=== PATIENT | female | born 1970 | race Caucasian/White ===

== ENCOUNTER → 2017-04-19 | Outpatient (CLI) | payer BC ==
[~2017-04-19] MED LIST: WARF10TA4 PO; WARF2TAB8 PO
--- NOTE | 2017-04-19 14:12 | DIAGNOSTIC IMAGING REPORT ---
LEFT HEEL MIN 2 VIEWS CLINICAL HISTORY: HEEL PAIN pain COMPARISON: None. DISCUSSION: Heel spur. Study is otherwise unremarkable. Bony mineralization is normal. There is no evidence for soft tissue swelling. IMPRESSION: Heel spur. Otherwise negative study. Electronically signed by: Slick Salter M.D. 04/19/2017 2:11 PM Dictated Date/Time: 04/19/2017 2:10 PM
== END | disposition home or self-care (01) ==
LOC: C.RAD 13:47
PROVIDERS: ATTEND Physician Assistant
DX: M79.672 Pain in left foot (principal); M77.32 Calcaneal spur, left foot

== ENCOUNTER 2019-12-18 10:54 | Observation (INO) ==
--- NOTE | 2019-12-03 10:38 | PAT Medication Instructions ---
Medication Instructions Date of Service December 03, 2019 Home Medications lisinopril 5 mg PO QPM multivitamin with minerals [Hair,Skin and Nails] 1 tab PO DAILY warfarin 2 mg PO QPM warfarin 10 mg PO QPM ASK your prescriber and surgeon warfarin 2 mg PO QPM warfarin 10 mg PO QPM DO NOT take the morning of surgery multivitamin with minerals [Hair,Skin and Nails] 1 tab PO DAILY Take evening before surgery lisinopril 5 mg PO QPM Other Notes If you have any questions please call us at [phone] or [phone] or [phone] or [phone]
--- NOTE | 2019-12-03 10:53 | Anesthesiology Consultation ---
Date of Service December 03, 2019 Assessment & Plan (1) Encounter for pre-operative examination: - Check test AM DOS - Check coags AM DOS (warfarin instructions per surgeon/prescriber) - Possible difficult intubation: due to anatomy Chart Review Chart Review: Acceptable Risk for Surgery and Patient seen in Pre Admission Testing Teaching & Discussion Pre-Anesthesia Teaching/Discussion Notes: Instructed NPO after midnight before surgery,except medications with 15 cc of water. Medication instructions provided according to the PAT guidelines. History Surgery Operation Date: 12/18/19 12:30 Proposed Procedures p Total Laparoscopic Hysterectomy, Bilateral Salpingo-Oophorectomy; Cystoscopy - Thao Sue Height/Weight Height: 5 ft 6 in Weight: 134.5 kg Allergies Allergy/AdvReac Type Severity Reaction Status Date / Time latex Allergy Intermediate localized Verified 12/03/19 08:43 rash No Known Drug Allergies AdvReac Verified 12/03/19 08:43 Medications Home Medications Medication Instructions Recorded Confirmed Last Taken lisinopril 5 mg PO QPM 12/03/19 12/03/19 Unknown multivitamin with minerals 1 tab PO DAILY 12/03/19 12/03/19 Unknown [Hair,Skin and Nails] warfarin 2 mg PO QPM 12/03/19 12/03/19 Unknown warfarin 10 mg PO QPM 12/03/19 12/03/19 Unknown Past Medical History Medical History Asthma no current issues Deep vein thrombosis LLE (~2013) Factor 5 Leiden mutation, heterozygous History of cellulitis LLE resolved 11/2019; felt r/t venous insufficiency- wears compression stockings Hypertension Morbid obesity Exercise / Class Metabolic Activity II 4-5 Yardwork/Stairs/Walk up hill Past Family History Family History Grandmother Cervical cancer Uncle FHx: lung cancer Other No family history of adverse response to anesthesia Past Surgical History Surgical History History of tooth extraction Past Anesthesia History No Family Hx of Anesthesia Complications and Other (post-op hyperventilating x1 episode with anesthesia emergence after teeth extraction) History of PONV No Hx of PONV and No Hx of Motion Sickness Social History Smoking Status: Former smoker tobacco type: cigarettes Do You Dip or Chew Tobacco: No Smoking End Date: Quit 26 years ago Hx Alcohol Use: Yes Alcohol type: wine and hard liquor alcohol intake frequency: a few times a week Hx Substance Use: No Review of Systems Occasional heart racing. Patient denies chest pain, shortness of breath, dyspnea on exertion, cough, wheezing. Physical Exam Vital Signs VITALS BP 123/63 P 62 TEMP 98.5 SP02 96%RA RESP 18 PHYSICAL Full neck and c-spine range of motion. Full TMJ range of motion. TMD 2 finger breaths (small chin) Mallampati Score 3 Dentition: missing molars Lungs: clear throughout to auscultation Cardiac: regular rate and rhythm, no murmurs noted Spine: normal Carotid arteries: negative bruit Extremities: no edema Testing Laboratory Results 12/03/19 11:15 12/03/19 11:15 PT 33.6 Seconds (9.0-12.0) H 12/03/19 11:15 INR 3.6 (0.9-1.1) H 12/03/19 11:15 APTT 40.7 Seconds (21.0-31.0) H 12/03/19 11:15 Blood Type AB Positive 12/03/19 11:15 Antibody Screen NEGATIVE 12/03/19 11:15 Electrocardiogram Date: 12/03/19 Findings: + NSR @ (69) Echocardiogram Date: 09/24/18 EF 55-60%. Mild MR. Mild to moderate TR. RVSP 30-40mmhg.
[2019-12-03 11:53] LABS: Basophils # (auto) 0.03 K/uL (0-0.2); Basophils % (auto) 0.6 %; Eosinophils % (auto) 3.9 %; Hematocrit (blood only) 41.3 % (37-47); Hemoglobin 13.4 g/dL (12.0-16.0); Immature Granulocytes # (auto) 0.02 K/uL (0.00-0.02); Immature Granulocytes % (auto) 0.4 %; Lymphocytes # (auto) 1.56 K/uL (1.2-3.4); Lymphocytes % (auto) 30.6 %; Mean Corpuscular Hemoglobin 31.2 pg (25-34); Mean Corpuscular Hgb Conc 32.4 g/dL (32-36); Mean Platelet Volume 10.5 fL (7.4-10.4); Monocytes # (auto) 0.45 K/uL (0.11-0.59); Monocytes % (auto) 8.8 %; Neutrophils # (auto) 2.84 K/uL (1.4-6.5); Neutrophils % (auto) 55.7 %; Platelet Count 200 K/uL (130-400); RDW Coefficient of Variation 13.6 % (11.5-14.5); RDW Standard Deviation 47.4 fL (36.4-46.3)
[2019-12-03 12:15] LABS: INR 3.6 (0.9-1.1); Partial Thromboplastin Ratio 1.5; Partial Thromboplastin Time 40.7 Seconds (21.0-31.0); Prothrombin Time 33.6 Seconds (9.0-12.0)
[2019-12-03 12:18] LABS: Calcium 9.7 mg/dl (8.5-10.1); Creatinine Clr Calc Pharmacy 119.8 ml/min; Est GFR (African American) 99.5; Est GFR (Non-African American) 85.9; Potassium 4.5 mmol/L (3.5-5.1)
--- NOTE | 2019-12-03 17:39 | Electrocardiogram Report ---
Test Reason : Blood Pressure : / mmHG Vent. Rate : 069 BPM Atrial Rate : 069 BPM P-R Int : 178 ms QRS Dur : 082 ms QT Int : 394 ms P-R-T Axes : 042 042 005 degrees QTc Int : 422 ms Normal sinus rhythm Normal ECG When compared with ECG of 06-AUG-2012 13:03, No significant change was found Confirmed by Tray Perez ([id number]) on 12/03/2019 5:39:05 PM Referred By: Thao Sue Confirmed By:James Perez
[~2019-12-18 10:54] MED LIST changes: +CEFAZOLIN 3000MG 72.5 ML IV SCH; +LACTATED RINGER'S 1,000 ML IV SCH; +LR 15ML/HR IV SCH; -WARF10TA4 PO; -WARF2TAB8 PO
[2019-12-18] MEDS ORDERED: NEOSTIGMINE METHYLSULFATE 5 MG/5 ML SYR ONE (11:09)
[2019-12-18] MEDS ORDERED: PROPOFOL IV EMULSION 10 MG/ML 20 ML VIAL IV ONE ×2 (11:09→14:03)
[2019-12-18] MEDS ORDERED: LIDOCAINE HCL 2% 2 ML VIAL/AMP(20MG/ML) INFIL ONE (11:09)
[2019-12-18] MEDS ORDERED: ONDANSETRON INJ 2 MG/ML 2 ML VIAL ONE (11:09)
[2019-12-18] MEDS ORDERED: ROCURONIUM BROMIDE 10 MG/ML 5 ML VIAL ONE (11:09)
[2019-12-18] MEDS ORDERED: GLYCOPYRROLATE 0.2 MG/ML VIAL ONE (11:09)
[2019-12-18] MEDS ORDERED: DEXAMETHASONE SOD INJ 4 MG/ML VIAL ONE (11:09)
[2019-12-18] MEDS ORDERED: fentaNYL citrate 100 MCG/2 ML VIAL ONE ×2 (11:09→14:02)
[2019-12-18] MEDS ORDERED: MIDAZOLAM HCL 1 MG/ML 2ML VIAL ONE (11:09)
--- OUTSIDE RECORDS SUMMARY | 2019-12-18 11:16 | External Medical Summary | Continuity of Care Document ---
:1970 Author Name Tena Quevedo Address Unavailable Unavailable , Care Team Providers Name Role Phone Tuyet Quevedo Unavailable [email or web address] Unavailable Unavailable Unavailable Unavailable Unavailable Assessments Assessed Problems:Epistaxis Problems Epistaxis (784.7) (R04.0) Allergies and Adverse Reactions No Known Drug Allergies (Allergy) Latex (Allergy) Medications Coumadin 10 MG Oral Tablet Refills: 0 Coumadin 2 MG Oral Tablet Refills: 0 Lisinopril 10 MG Oral Tablet Refills: 0 Procedures History of no history of surgery Status: Completed Immunizations Immunizations not documented Family History Mother Family history of factor V Leiden mutation (V18.3) (Z83.2) S tatus: Active Unknown Family Member Family history of cardiac disorder (V17.49) Status: Active Comments: Family History (Z82.49) Family history of malignant neoplasm (V16.9) Status: Active Comments: Family History (Z80.9) Social History - Smoking Status Former smoker Plan of Treatment Planned Observations Planned Goals not documented Results No Known Results Results not documented Encounters Appointment; Bobby Benz M.D. 03-Mar-2019 10:50 Encounter Diagnosis: Problem not documented Appointment; Bobby Benz M.D. 17-Mar-2019 8:40 Encounter Diagnosis: Problem not documented
[2019-12-18 11:53] LABS: Partial Thromboplastin Time 26.5 Seconds (21.0-31.0); Prothrombin Time 10.6 Seconds (9.0-12.0)
[2019-12-18 12:00] LABS: Pregnancy Test, Serum Negative (Negative)
--- NOTE | 2019-12-18 12:38 | History & Physical Bridge Note ---
Date of Service December 18, 2019 History & Physical Bridge Note I have examined the patient, reviewed the History & Physical and in the interval since the performance of the History & Physical I have noted the following changes of clinical significance: no changes noted
[2019-12-18] MEDS ORDERED: BUPIVACAINE 0.5 % 5 MG/1 ML MPF 30ML VIAL ONE (12:48)
[2019-12-18] MEDS ORDERED: VASOPRESSIN 20 UNIT/ML VIAL ONE (13:12)
[2019-12-18] MEDS ORDERED: SUCCINYLCHOLINE 100MG/5ML SYR ONE (13:30)
[2019-12-18] MEDS ORDERED: ePHEDrine sulfate 50 MG/ML SYR ONE (13:38)
[2019-12-18] MEDS ORDERED: PHENYLEPHRINE 100MCG/ML 5ML SYR ONE (13:38)
[2019-12-18] MEDS ORDERED: CISATRACURIUM BESYLATE IV SOLN 2 MG/ML 10 ML VIAL IV ONE (14:05)
[2019-12-18] MEDS ORDERED: ePHEDrine sulfate 50 MG/ML AMP IV PRN (14:19)
[2019-12-18] MEDS ORDERED: PROMETHAZINE HCL 12.5 MG in SODIUM CHLORIDE 0.9% 50 ML IV PRN (14:19)
[2019-12-18] MEDS ORDERED: fentaNYL citrate 100 MCG/2 ML VIAL IV PRN (14:19)
[2019-12-18] MEDS ORDERED: ONDANSETRON INJ 2 MG/ML 2 ML VIAL IV PRN ×2 (14:19→16:31)
[2019-12-18] MEDS ORDERED: ATROPINE SULFATE 0.1 MG/ML 10ML SYR IV PRN (14:19)
[2019-12-18] MEDS ORDERED: HYDROmorphone INJ 2 MG/ML SYR/VIAL IV PRN (14:19)
[2019-12-18] MEDS ORDERED: TISSEEL FIBRIN SEALANT 10ML TOP ONE ×2 (14:33→15:11)
[2019-12-18] MEDS ORDERED: HYDROmorphone INJ 2 MG/ML SYR/VIAL ONE (14:33)
--- NOTE | 2019-12-18 15:21 | Post Operative Brief Note ---
Immediate Post Op Note v1 Date of Surgery December 18, 2019 Pre & Post Diagnosis Operation Date: 12/18/19 12:40 Pre-Op Diagnosis: Abnormal Uterine Bleeding Post-Op Diagnosis: Abnormal Uterine Bleeding I identified the patient and participated in the time-out.: Yes Procedure Operation Date: 12/18/19 12:40 Actual Procedures p Total Laparoscopic Hysterectomy, Bilateral Salpingo-Oophorectomy; Cystoscopy(Bilateral) - Thao Sue Surgeon Thao Sue Stuffed Casing Tier Fabienne Blanc PA-C Estimated Blood Loss 100 Findings Consistent with Post-Op Diagnosis Drains Joseph Catheter (Silicone catheter inserted by Jess Blanc PA-C without difficulty. Urine output monitored by anesthesia. To be removed at end of case.)
--- NOTE | 2019-12-18 15:46 | Operative Report ---
Post Operative Report Pre & Post Diagnosis Operation Date: 12/18/19 12:40 Pre-Op Diagnosis: Abnormal Uterine Bleeding Post-Op Diagnosis: Abnormal Uterine Bleeding I identified the patient and participated in the time-out.: Yes Procedure Operation Date: 12/18/19 12:40 Actual Procedures p Total Laparoscopic Hysterectomy, Bilateral Salpingo-Oophorectomy; Cystoscopy(Bilateral) - Thao Sue Surgeon Thao Sue Welding Machine Operator Gas Fabienne Blanc PA-C Estimated Blood Loss 100 Findings See Below 1. 14 cm anteverted enlarged uterus 2. Normal appearing ovaries and fallopian tubes bilaterally 3. Anterior and posterior cul-de-sac free of disease 4. Normal appearing liver edge 5. Appendix not visualized 6. On cystoscopy, normal appearing bladder dome which was free of lesions or suture 7. Brisk bilateral efflux of urine by ureteral orifices Fluids 1000 ml Specimens Uterus, cervix, bilateral fallopian tubes and ovaries Drains Pagan catheter removed prior to the end of the procedure. Anesthesia Type General Complications none Indications 49 yo with abnormal uterine bleeding and h/o DVT and Factor V leiden, unable to use medical management, desiring definitive surgical management via hysterectomy. Description of Procedure Under GA in the dorsal lithotomy position, the patient was prepped and draped in the usual sterile fashion. Beginning at the vagina, a pagan catheter was inserted under sterile conditions and left in situ for the remainder of the case. A weighted speculum was then placed in the vagina and with the help of a right angle retractor the cervix was visualized and grasped anteriorly with a single tooth tenaculum. The uterus was sounded to 14 cm.The cervical os was dilated up and an Advincula uterine manipulator with a metal cup was inserted. The weighted speculum was then removed. Attention was then turned to the abdomen. 0.5% marcaine solution was used for infiltration of all port sites. Beginning in the subumbilical area, the skin was first infiltrated with ~ 2 cc of the bupivicaine solution, then a 5 mm incision was made through the skin with a #11 blade. Direct entry with a 5 mm trocar, sleeve, and laparoscope was made into the peritoneal cavity without difficulty. The opening pressure was < 8 mmHg. The peritoneal cavity was insufflated with CO2 gas to a maximum pressure of 20 mmHg. The laparoscope was then introduced and confirmation of entry was made. Examination of the peritoneal cavity revealed no signs of injury from entry and normal anatomical structures. The patient was then placed in steep Trendelenburg and three more 5 mm trocars were placed, one on the right and two on the left, in the standard technique, taking care to avoid the epigastric vessels. All trocars were placed under direct visualization with no inadvertent damage to underlying structures. The uterus was upheld from below and revealed an enlarged uterus and normal tubes and ovaries. Beginning on the right side, the Infundibular ligament was identified by lifting the tube towards the anterior wall of the abdomen. The ureter was confirmed along the pelvic side wall and peristalsis was noted. The RUFINA Harmonic device was then used to clamp and ligate the IP ligament in three sequential bites with ligation. The IP was then cut middistance, again being sure to be clear of the ureter. Following this, the broad ligament was sequentially grasped, ligated, and cut in the direction of the round ligament hugging next to the fallopian tube. The round ligament was then ligated and cut, followed by the uteroovarian ligament. Following this, the anterior leaf of the broad ligament was then taken down on the left side, dissecting down towards the peritoneal reflection at the base of the bladder and adjacent to the cervix. The same process was then repeated on the left side such that both sides met and the anterior leaflet had been appropriately skeletonized. Once the bladder was appropriately dissected free from the lower anterior uterine segment and the tissues skeletonized, the uterine arteries were bilaterally clamped and ligated. Pedicles were checked and hemostatic. At the level of the metal cup of the uterine manipulator, the vaginal vault was incised circumferentially with the RUFINA Harmonic. The uterus, cervix, tubes and ovaries were delivered through the vagina and sent to pathology. A vaginal occluder was then placed into the vagina to form a pneumatic seal and all the pedicles as well as the cuff edges were examined. The vaginal vault was then closed with a V-Loc barbed stitch being sure to avoid the bladder lateral pedicles. Following vault closure, an inspection of all areas was made to ensure hemostasis. Tisseal was placed after cuff closure along the adnexal regions and vaginal cuff. Hemostasis was again appreciated. All ports were removed under direct visualization and hemostasis noted. All the incision sites were then closed with 4-0 monocryl sutures in a subcuticular fashion and dermabond. Attention was returned to the vagina. The vaginal occluder and pagan catheter was removed. Cystoscopy was then performed. Normal appearing bladder dome which was free of lesions or suture. Brisk bilateral efflux of urine by ureteral orifices was visualized. The bladder was drained and the cystoscope was removed without difficulty. At the end of the procedure, all sponges, instruments, and sharps were counted and correct. Estimated blood loss was 100 ml. The patient was taken to recovery in stable condition. I attest to the content of the Intraoperative Record and any orders documented therein. Any exceptions are noted below.
--- NOTE | 2019-12-18 16:09 | Anesthesiology Progress Note ---
Date of Service December 18, 2019 Anesthesia Post Procedure Vital Signs Vital Signs: Temp Pulse Pulse Resp BP Pulse Ox 12/18/19 16:05 62 21 111/62 100 12/18/19 15:55 61 18 123/69 100 12/18/19 15:45 73 18 116/70 100 12/18/19 15:35 36.1 C L 83 23 121/68 100 12/18/19 11:38 36.7 C 69 20 139/73 99 Pain Intensity Lower Abdomen: Pain Intensity: 0 Transfer of Care Handoff Completed per policy Notes Mental Status: alert / awake / arousable Patient Amnestic to Procedure: Yes Nausea / Vomiting: adequately controlled Pain: adequately controlled Airway Patency, RR, SpO2: stable & adequate BP & HR: stable & adequate Hydration State: stable & adequate Anesthetic Complications: no major complications apparent
[2019-12-18] MEDS: OXYCODONE HCL IR 5 MG TAB (IMMEDIATE RELEASE) PO SCH ×2 (17:17→20:58)
[2019-12-18] MEDS: SIMETHICONE 80 MG CHEW PO SCH (17:40)
[2019-12-18] MEDS: ACETAMINOPHEN 325 MG TAB PO SCH (17:41)
[2019-12-18] MEDS ORDERED: WARFARIN SOD 4 MG TAB PO ONE (18:00)
[2019-12-18] MEDS: DOCUSATE SODIUM 100 MG CAP PO SCH (20:35)
[2019-12-18] MEDS ORDERED: lisinopriL 5 MG TAB PO SCH (21:00)
[2019-12-18] MEDS ORDERED: COUGH DROP (SUGAR FREE) LOZ 24 LOZ/1 BOX BUCCAL PRN (21:57)
[2019-12-19] MEDS: ACETAMINOPHEN 325 MG TAB PO SCH ×2 (00:27→05:49)
[2019-12-19] MEDS: OXYCODONE HCL IR 5 MG TAB (IMMEDIATE RELEASE) PO SCH ×3 (00:27→08:30)
[2019-12-19] MEDS: SIMETHICONE 80 MG CHEW PO SCH ×2 (00:27→05:49)
--- NOTE | 2019-12-19 07:45 | Gynecologic Progress Note ---
Date of Service December 19, 2019 Assessment & Plan Admission and Anticipated Discharge Date Admission Date: December 18, 2019 s/p TLH/BSO/Cystoscopy on 12/18/2019. Patient meeting discharge criteria. Discharge home with instructions. Post-op medications previously prescribed. Anticipated date of discharge: 12/19/19 Subjective s/p TLH/BSo/Cystoscopy. POD #1. Patient seen and examined. Patient without complaints this morning. Tolerating clears. Pain controlled with oral medication. Ambulating and urinating without difficulty. Denies N/V, fevers, chills, SOB or CP. Review of Systems Review of Systems: All systems reviewed & are unremarkable except as noted in Subjective Physical Exam 2 Constitutional: WD/WN, vitals as above Respiratory: normal respiratory effort, lungs clear to auscultation Cardiovascular: Rate/Rhythm: regular rate and regular rhythm Gastrointestinal (Abdomen): Inspection/Auscultation: abdomen normal to inspection and normal bowel sounds Obese. Appropriately tender to palpation. Incisons: C/D/I. No erythema. Patient with ecchymosis on abdomen secondary to lovenox injections. Results & Data ([facility]) Vital Signs (Past 12 Hours) Vital Signs Temp Pulse Resp BP Pulse Ox 12/19/19 04:40 66 130/74 12/19/19 04:20 36.8 C 84 16 146/85 H 95 12/18/19 23:05 37.3 C 68 16 100/70 93 12/18/19 20:33 81 108/69 95
--- NOTE | 2019-12-19 07:55 | Discharge Summary ---
Date of Service December 19, 2019 Admission HPI Per Admitting Provider 49 yo with abnormal uterine bleeding. h/o DVT and Factor V Leiden. Currently on coumadin. Desiring definitive surgical management. Admission Exam (Per Admitting) Constitutional WD/WN, vitals as above Respiratory normal respiratory effort, lungs clear to auscultation Cardiovascular Rate/Rhythm: regular rate and regular rhythm Gastrointestinal (Abdomen) Inspection/Auscultation: abdomen normal to inspection and normal bowel sounds Discharge Data Procedures Performed Operation Date: 12/18/19 12:40 Actual Procedures p Total Laparoscopic Hysterectomy, Bilateral Salpingo-Oophorectomy; (Bilateral) - Thao V. Linette s Cystoscopy(Bilateral) - Thao V. Linette Discharge Instructions POST OPERATIVE: BOWEL FUNCTION/MEDICATIONS: 1. Constipation pain and discomfort are the most common complaints 5-7 days after surgery. Points 2-6 address the things that can help. 2. Chewing gum can help stimulate the gut and help improve digestion and motility. 3. Milk of Magnesia 1-2 times per day until return of bowel function. 4. Colace is a stool softener that helps. Taking this 2-3 times per day until bowel function returns to normal is highly recommended. 5. Dulcolax is a laxative that may be used if several days have passed without a bowel movement. Alternatively Miralax may be used daily instead. 6. Drink plenty of fluids as this will also reduce constipation. 7. Narcotic pain medications will be prescribed by your physician. They are safe to use and we encourage you to use them. If you are not allergic, ibuprofen will also be prescribed. Many patients will be able to transition off of the narcotic medications to ibuprofen by postoperative day 3. ACTIVITY RECOMMENDATIONS: 1. Get plenty of rest and listen to your body. If you are tired, take a nap. 2. You may shower, but do not take a tub bath until you see your doctor at the 2 week post operative visit. 3. Absolutely NO intercourse and nothing in the vagina until you are examined by your doctor at the 6 week visit. At that visit it will be determined when such activities can be resumed. This can range from 6-12 weeks after your surgery depending on healing time. 4. The main physical activity in the first week should be walking. By the second week you can slowly increase activity. There are no limits on walking up and down stairs. 5. Do not lift more than 5-10 lbs for 4 weeks. Remember the "one-handed rule", i.e. if you can lift something with only one hand it's likely okay. 6. Minimize cnc machinist like vacuuming and exercising for 4 weeks. "Overdoing it" can lead to incisions not healing, pain and vaginal bleeding, so again, listen to your body. 7. Driving can be resumed when you feel able. Do not drive within 24 hours of taking a narcotic medication. EXPECTATIONS: 1. Vaginal spotting, bleeding and discharge are common after surgery. There may even be an odor to the discharge which is often related to sutures used in the vagina. If you experience heavy vaginal bleeding, call the office number day or night [phone] 2. Bladder discomfort is common after surgery from the catheter. This usually resolves in 1-2 weeks. 3. By the end of the 3rd or 4th week you should be feeling much better. It may take up to 6 weeks for your energy levels to return to normal. 4. Narcotic medications have side effects such as: dizziness, headache, nausea and/or vomiting. If you suspect your pain medication is causing problems, call our office and we may be able to prescribe an alternate medication. 5. The skin incisions are often covered with a liquid bandage. This will gradually peel off over time. CALL THE OFFICE IF YOU HAVE ANY OF THE FOLLOWIN. Temperature of 101 degrees or higher. 2. Severe abdominal or pelvic pain not relieved by pain medication. 3. Persistent nausea or vomiting. 4. Increased pain with urination or difficulty urinating. 5. Bright red bleeding that soaks more than 1 pad per hour. CONTACT PHONE NUMBERS: Main Office: [phone] Avoid all tobacco products. If you need help to stop smoking, call [place]'s FREE QUITLINE at . This is a free call.
[2019-12-19] MEDS: DOCUSATE SODIUM 100 MG CAP PO SCH (08:31)
== END 2019-12-19 12:08 | disposition home or self-care (01) ==
LOC: 3W 10:54 → ASU 10:54